=== PATIENT | female | born 1930 | race Caucasian/White ===

== ENCOUNTER → 2018-04-22 | Outpatient (CLI) | payer OTHER, MEDICAID, MEDICARE | LOC: M WHC 09:48 | DX: Z12.31 Encounter for screening mammogram for malignant neoplasm of breast (principal); Z85.3 Personal history of malignant neoplasm of breast | CPT/HCPCS: 77067 ==

== ENCOUNTER → 2019-07-01 | Outpatient (REF) | payer MEDICARE, MEDICAID ==
[2019-07-01 18:13] LABS: APPEARANCE, URINE CLOUDY (CLEAR); BACTERIA, URINE AUTO 3+ (NEGATIVE); BILIRUBIN, URINE AUTO NEGATIVE (NEGATIVE); BLOOD, URINE BLOOD NEGATIVE (NEGATIVE); COLOR, URINE YELLOW (YELLOW); GLUCOSE, URINE (UA) AUTO NEGATIVE (NEGATIVE); KETONE, URINE AUTO NEGATIVE (NEGATIVE); LEUKOCYTE ESTERASE, URINE AUTO 3+ (NEGATIVE); MUCUS, URINE SMALL (NEGATIVE); NITRITE, URINE AUTO POSITIVE (NEGATIVE); PROTEIN, URINE AUTO 3+ mg/dL (NEGATIVE); RBC, URINE AUTO 3 /HPF (0-3); SPECIFIC GRAVITY URINE AUTO 1.014 (1.002-1.035); SQUAMOUS EPITHELIAL CELL UR AU 0 /HPF (0-6); UROBILINOGEN, URINE AUTO 0.2 mg/dL (0.0-2.0); WBC, URINE AUTO 172 /HPF (0-3)
== END ==
LOC: M LAB REF 17:05
PROVIDERS: ATTEND Nurse Practitioner Family
DX: N39.0 Urinary tract infection, site not specified (principal)

== ENCOUNTER 2019-12-19 09:04 | Inpatient (IN) | payer MEDICARE, MEDICAID ==
[2019-12-19] VITALS (17 sets, daily range): BP systolic 104–165; BP diastolic 52–71
[2019-12-19] MEDS: EZETIMIBE 10 MG TAB (ZETIA) PO SCH (09:00)
[2019-12-19] MEDS: oxyBUTYnin *DITROPAN XL* 5 MG TABCR PO SCH (09:00)
[2019-12-19] MEDS ORDERED: SIMV10TA21 PO (09:41)
[2019-12-19] MEDS ORDERED: MAGN400C2 PO (09:41)
[2019-12-19] MEDS ORDERED: OMEP-218 PO (09:41)
[2019-12-19] MEDS ORDERED: LASI20TA3 PO (09:41)
[2019-12-19] MEDS ORDERED: IPRA0.00 NEB (09:41)
[2019-12-19] MEDS ORDERED: DILT120T PO (09:41)
[2019-12-19] MEDS ORDERED: ASPI81TA85 PO (09:41)
[2019-12-19] MEDS ORDERED: METO1TAB7 PO (09:41)
[2019-12-19] MEDS ORDERED: ACET-908 PO (09:41)
[2019-12-19] MEDS ORDERED: JANU25TA PO (09:41)
[2019-12-19] MEDS ORDERED: KP F1200 PO (09:41)
[2019-12-19] MEDS ORDERED: DITR1TAB PO (09:41)
[2019-12-19] MEDS ORDERED: LOPE1CAP5 PO (09:41)
[2019-12-19] MEDS ORDERED: CIDA500T2 PO (09:41)
[2019-12-19] MEDS ORDERED: EZET10TA21 PO (09:41)
--- NOTE | 2019-12-19 09:49 | REP ---
SITTING AP CHEST X-RAY: Single view. HISTORY: Altered mental status. FINDINGS: There is evidence of thyroid enlargement. The thoracic aorta is calcific and tortuous. The heart is mildly enlarged. Pulmonary vasculature is not increased. The lungs are well inflated and clear. Monitoring electrodes are seen. There are generative changes in the shoulders bilaterally. IMPRESSION: Cardiomegaly. Goiter. Otherwise no acute disease. Electronically Signed by Fran Mata MD 12/19/2019 11:09 A
--- NOTE | 2019-12-19 09:49 | REP ---
CT BRAIN WITHOUT CONTRAST: HISTORY: Altered mental status. No comparison study. CT FINDINGS: Digital preliminary dough mixer helper radiograph is unremarkable. The bony calvarium is intact. There is heavy vascular calcification in the distal vertebral and internal carotid arteries bilaterally. The visualized paranasal sinuses are clear. On soft tissue window settings, there is moderate diffuse atrophy. There are small vessel changes in the periventricular white matter. There are lesions in the basal ganglia bilaterally. On the left, there is a 6 mm hyperdense nodule in the basal ganglia, which could be a small petechial hemorrhage. Superior to this there is an old lacunar infarct of similar size in the left basal ganglia. There is also an old lacunar infarct in the head of the caudate nucleus. On the right, there is heterogeneous low density with linear hyperdensity in a lesion in the right basal ganglia laterally. The appearance is suggestive of subacute infarct pattern. There is some edema associated with this. The right basal ganglia lesion is larger. Approximately 2.5 cm. No other evidence of cortical infarction is seen. No other hemorrhage is seen. IMPRESSION: Findings consistent with subacute infarction in the lateral aspect of the basal ganglia on the right and rounded 6 mm petechial hemorrhage in the lateral aspect of the basal ganglia on the left. There are two old lacunar infarcts in the basal ganglia on the left as well. Vascular calcification, diffuse atrophy, and small vessel changes are also noted. Findings discussed by telephone with the referring provider at the time of the study. Electronically Signed by Fran Mata MD 12/19/2019 11:11 A
[2019-12-19] MEDS ORDERED: FUROSEMIDE 20 MG TAB PO ONE (10:00)
[2019-12-19] MEDS ORDERED: METOPROLOL SUCC (TopROL XL) 50MG **XL** TAB PO ONE (10:00)
[2019-12-19] MEDS ORDERED: CARD120C3 PO (10:07)
[2019-12-19 10:13] LABS: BASO # 0.1 10^3/uL (0.0-0.2); BASO % 0.5 % (0.0-1.0); EOS # 0.1 10^3/uL (0.0-0.5); EOS % 1.2 % (0.0-3.0); HEMATOCRIT 39.9 % (36.0-47.0); HEMOGLOBIN 12.9 g/dl (12.0-15.5); LYMPH # 2.2 10^3/uL (1.5-5.0); LYMPH % 20.7 % (24.0-44.0); MEAN CORPUSCULAR HEMOGLOBIN 29.7 pg (27.0-33.0); MEAN CORPUSCULAR HGB CONC 32.3 g/dl (32.0-36.5); MEAN CORPUSCULAR VOLUME 91.9 fl (80.0-96.0); MONO # 0.7 10^3/uL (0.0-0.8); MONO % 6.8 % (0.0-5.0); NEUTROPHILS # 7.5 10^3/uL (1.5-8.5); PLATELET COUNT, AUTOMATED 241 10^3/uL (150-450); RED BLOOD COUNT 4.34 10^6/uL (4.00-5.40); WHITE BLOOD COUNT 10.7 10^3/uL (4.0-10.0)
[2019-12-19 11:00] LABS: ALT/SGPT 14 U/L (12-78); BILIRUBIN,DIRECT 0.1 MG/DL (0.0-0.2); BILIRUBIN,TOTAL 0.5 MG/DL (0.2-1.0); BLOOD UREA NITROGEN 23 MG/DL (7-18); CALCIUM LEVEL 9.6 MG/DL (8.8-10.2); CARBON DIOXIDE LEVEL 25 MEQ/L (21-32); CHLORIDE LEVEL 104 MEQ/L (98-107); CK-MB VALUE MASS < 1.0 NG/ML (<3.6); CPK CREATINE PHOSPHOKINASE 96 U/L (26-192); CREATININE FOR GFR 1.24 MG/DL (0.55-1.30); GLOMERULAR FILTRATION RATE 43.6 (>32); GLUCOSE, FASTING 135 MG/DL (70-100); MB/CK RELATIVE INDEX 1.04 (< OR =4); POTASSIUM SERUM 5.2 MEQ/L (3.5-5.1); SODIUM LEVEL 135 MEQ/L (136-145); TOTAL PROTEIN 7.9 GM/DL (6.4-8.2); TROPONIN I < 0.02 NG/ML (< 0.10)
--- NOTE | 2019-12-19 11:41 | REP ---
MR angiography the brain without contrast: History: Facial droop. Abnormal CT study 12/19/2019. Technique: 3-D [id number] MR angiography of the brain is acquired in the usual fashion and maximal intensity projection images were generated in rotational format about the vertical and horizontal axes. In addition, source axial T1-weighted images are viewed in cine mode. MR angiographic findings: There is a T1 hyperintense lesion in the right basal ganglia and a focal T1 hypointense signal dropout in the left basal ganglia corresponding to the lesion seen on CT. The distal vertebral arteries are patent and co-dominant. Basilar artery is a little tortuous but widely patent. The posterior cerebral and superior cerebellar vessels are normal and symmetric. The distal internal carotid arteries are unremarkable. Anterior and middle cerebral arteries appear intact. There is no visible lua aneurysm or arteriovenous malformation. Impression: Unremarkable MR angiography the brain. Electronically Signed by Fran Mata MD 12/19/2019 11:33 A
--- NOTE | 2019-12-19 11:52 | REP ---
MRI brain without contrast: History: Abnormal CT. History of facial droop. Comparison CT study is from earlier today. Technique: Axial and sagittal imaging planes are utilized for T1 and T2-weighted scans. Sequences include spin-echo, fast spin echo, FLAIR, and diffusion weighted sequences. MRI findings: The lesion seen by CT study in the right basal ganglia laterally is observed. This has a hemosiderin stain surrounding it and a hyperintense T1 and hyperintense T2 internal signal intensity consistent with subacute hemorrhage. It measures 2.3 cm anterior to posterior by 1.0 cm right to left by 2.0 cm cranial to caudal. There is some adjacent edema and subtle mass effect. On the left there is subtle edema around a low T1 low T2 signal intensity focus in the left lateral basal ganglia corresponding to the hyperdense lesion in the left basal ganglia on CT study. This may be acute hemorrhage. There are small vessel changes and diffuse atrophy. No extra-axial fluid collection is seen. There is restricted diffusion in the subacute lesion in the right basal ganglia. Impression: Findings consistent with a 2.3 cm subacute hemorrhagic infarction in the right basal ganglia laterally with some adjacent edema. There is a 6 mm focus of low T1 low T2 signal intensity corresponding to the hyperdensity on CT which is consistent with an acute small hemorrhage in the left basal ganglia. Small vessel changes and diffuse atrophy are seen. Electronically Signed by Fran Mata MD 12/19/2019 03:50 P
[2019-12-19] MEDS ORDERED: hydrALAZINE INJ 20 MG/ML VIAL IV STA (12:07)
[2019-12-19] MEDS ORDERED: [UNRECOGNIZED DRUG - CODE] PO (13:14)
[2019-12-19] MEDS ORDERED: META0.52 PO ×2 (13:14→13:21)
[2019-12-19] MEDS ORDERED: NYST1POW9 TOP (13:14)
[2019-12-19] MEDS ORDERED: BETA0.0543 TOP (13:14)
[2019-12-19] MEDS ORDERED: OMEG12003 PO (13:14)
[2019-12-19] MEDS ORDERED: DEXTROSE 50% 50 ML SYRINGE IV PRN (13:30)
[2019-12-19] MEDS ORDERED: GLUCAGON FOR INJ 1 MG VIAL (J1610) SC PRN (13:30)
[2019-12-19] MEDS ORDERED: GLUCOSE 4 GM CHEW TABLET PO PRN (13:30)
[2019-12-19] MEDS ORDERED: OMEPRAZOLE 20 MG CAP PO PRN (13:45)
[2019-12-19] MEDS ORDERED: NYSTATIN 100,000 UNITS/GM TOPICAL PWD 15 GM TOP PRN (13:45)
[2019-12-19] MEDS ORDERED: ACETAMINOPHEN 325 MG TAB PO PRN (13:45)
[2019-12-19] MEDS ORDERED: PILL CUTTER 1 EACH XX PRN (14:00)
--- NOTE | 2019-12-19 15:01 | REP ---
REASON: Stroke like symptoms. PRIORS: None. Echogenic material is seen along the carotid arterial joyner. Some of this casts an acoustic shadow consistent with calcific deposition. RIGHT LEFT CCA Systolic 67.4 cm/s 87.3 cm/s CCA Diastolic 5.9 cm/s 8.4 cm/s ICA Systolic 71.5 cm/s 92.5 cm/s ICA Diastolic 10.6 cm/s 15.2 cm/s ICA/CCA Ratio 1.06 1.06 Analysis of the spectral tracing shows no evidence of spectral broadening. There is antegrade flow seen in both vertebral arteries. IMPRESSION: According to the NASCET consensus criteria there is less than 50% stenosis of the internal carotid artery bilaterally. This is secondary to both calcified and non-calcified atheromatous plaque formation. Electronically Signed by Iggy Llanos DO 12/19/2019 03:44 P
[2019-12-19] MEDS: niCARdipine IV 40 MG in IV 1 EA IV SCH ×2 (15:04→20:54)
--- NOTE | 2019-12-19 16:22 | REP ---
Left knee series: Four views. History: Pain with movement. Findings: Four views of the left knee demonstrate severe osteoarthritis and advanced chondrocalcinosis. There is medial and lateral joint space narrowing and well established osteophyte formation. Fullness in the region of the suprapatellar bursa suggests a small effusion. There is extensive vascular calcification. There is diffuse osteopenia. 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 Vascular calcification and diffuse osteopenia. Possible joint effusion. No fracture seen. Electronically Signed by Fran Mata MD 12/19/2019 05:03 P
[2019-12-19] MEDS: HumaLOG INSULIN (NovoLOG) PER UNIT SC SCH ×2 (18:08→20:21)
--- NOTE | 2019-12-19 18:18 | HPE ---
DATE OF ADMISSION: 12/19/2019 at 01:00 p.m. CHIEF COMPLAINT: Facial droop. HISTORY OF PRESENT ILLNESS: Ms. Burnham is an 89-year-old woman who has a past medical history notable for hypertension, hyperlipidemia, fny-sumeoue-fchwdvuuv diabetes type 2, breast cancer status post chemotherapy, radiation and lumpectomy, and chronic kidney disease (CKD) stage III. The patient resides at one of the local [facility]. She was noted to have a facial droop today and was subsequently sent to the emergency room (ER) for evaluation. On arrival to the emergency department (ED), the patient was noted to have a blood pressure of 229/93 with a regular rhythm. Subsequent workup indicated that she had bilateral hemorrhagic strokes involving the right and left basal ganglia areas. Discussion was had with the patient's son who given his mother's advanced age did not want any aggressive therapy including neurosurgical intervention. Therefore, the patient was admitted to [facility]. In the ER, her blood pressures remained elevated. She has received her oral medications consisting of diltiazem, Lasix, and metoprolol in addition to IV hydralazine. When I saw her, her blood pressure systolic was 187. The patient is oriented to herself only. She is not oriented to place, person or time. Her medical history was obtained from her son, Manuel, over the phone by me. Her allergies are to MORPHINE. Her home medications are provided from the senior living list and include: - Tylenol 325 by mouth every six hours as needed for pain or fever - baby aspirin at bedtime - betamethasone cream apply twice a day as needed for skin eruption to face - Cardizem 120 mg by mouth daily - Crestor 10 mg by mouth daily - furosemide 10 mg twice a day - glucosamine 1000 mg by mouth daily - DuoNebs as needed for shortness of breath every six hours - loperamide 2 mg twice a day as needed for diarrhea - magnesium oxide 400 mg by mouth daily - metoprolol succinate 50 mg by mouth daily - Nystatin powder 15 grams as needed for itching under breasts and abdominal folds - fish oil 1200 mg by mouth daily - omeprazole 20 mg by mouth daily as needed for heartburn - Ditropan XL 10 mg by mouth daily - Metamucil three capsules by mouth daily - simvastatin 10 mg at bedtime - Januvia 25 mg by mouth daily Her past medical history is notable for diabetes mellitus, type two, non-insulin dependent with complications of chronic kidney disease (CKD), stage III. She has hypertension, hyperlipidemia, history of breast cancer. She has history of renal carcinoma status post partial nephrectomy. She has a history of skin cancer, unspecified. She has history of urinary incontinence. PAST SURGICAL HISTORY: Notable for lumpectomy, hysterectomy, cholecystectomy as well as partial nephrectomy. SOCIAL HISTORY: The patient resides in [place]. She does not use alcohol or illicit drugs. She has never smoked from my conversation with her son, Manuel. Manuel is her durable power of trademark attorney. He indicates to me that his mother's wishes were that she be resuscitated should she be able to live a regular life, but that she does not desire prolonged life sustaining measures should she be in a vegetative state. Therefore, I indicated to Manuel that she will be a full code unless he designates that otherwise. REVIEW OF SYSTEMS: Could not be obtained secondary to the patient's underlying dementia. FAMILY HISTORY: Noncontributory given the patient's advanced age and unable to be obtained given her underlying dementia. PHYSICAL EXAMINATION: The patient's pulse is regular at 63, respirations are 18, blood pressure is 189/74, oxygen saturation is 96% on room air. Temperature is 98.1. GENERAL: The patient is alert and oriented to self only. She is disoriented to time, place and event. She appears to be in no acute distress. She is not exhibiting any facial asymmetry, nor deficits in her speech, nor any hemiparesis. Her head is atraumatic. Her pupils are symmetric and reactive to light. No scleral icterus. Oropharynx is clear. Oral mucosa is moist. Tongue midline. Lungs sounds are appreciated without any audible carotid bruits. Heart is S1, S2. Abdomen is soft, nontender, nondistended with active bowel sounds. Extremities are without any significant cyanosis, clubbing or edema. Muscle strength is 5/5 in the proximal distal muscle groups of the upper and lower extremities. Her knee reflex was 2+, difficult to elicit the bicep, wrist and ankle reflex. RELEVANT DIAGNOSTIC STUDIES: EKG showed normal sinus rhythm with nonspecific T wave, ST changes. Sodium is 135, potassium 4.2, chloride 104, bicarbonate 25, BUN is 22, creatinine is 1.24, TSH is 1.47. White count is 10.7, hemoglobin is 12, hematocrit 29, platelet count is 241,000. RELEVANT IMAGING STUDIES: CT scan of the head showed findings consistent with subacute infarction in the lateral aspect of the basal ganglia on the right and a rounded 6 mm petechial hemorrhage in the lateral aspect of the basal ganglia on the left. There are two old lacunar infarcts in the basal ganglia on the left as well, vascular calcification, diffuse atrophy and small vessel changes are also noted. Chest x-ray showed cardiomegaly, goiter, otherwise no acute disease. MRA of the brain without contrast showed no significant vascular cerebral deficit. MRI of the brain without contrast showed findings consistent with a 2.3 cm subacute hemorrhage infarction in the right basal ganglia laterally with some adjacent edema. There is a 6 mm focus of low T1, low T2 signal intensity corresponding to the hyper density seen on the CT which is consistent with an acute small hemorrhage in the left basal ganglia, small vessel changes and diffuse atrophy are seen. IMPRESSION: 1. Acute hemorrhagic stroke. The patient will be admitted to the intensive care unit (ICU) for adequate blood pressure control. She will be placed on a nicardipine drip. We will aim to keep her systolic blood pressure less than 140. The patient has received her oral medications. However, at this point in time, we will hold off on reintroducing those as we do not want to bottom her pressure until we reassess her in the next 24 hours. The patient will have serial stroke checks. I did with her son code status and she will be a full code, but if her condition deteriorates, no intervention is warranted. The patient's aspirin will be discontinued. She will be placed on sequential compression devices (SCDs) for deep vein thrombosis (DVT) prophylaxis. 2. Hypertensive emergency. The patient will be placed on a nicardipine drip. 3. Chronic kidney disease (CKD), stage III. The patient will be monitored closely with serial basic metabolic panels (BMPs). We will avoid nephrotoxins. 4. Hypertension. Plan per above. 5. Hyperlipidemia. The patient will have a fasting lipid profile checked in the morning. We will continue with her Crestor as well as statin. 6. Diabetes mellitus, type 2, [id number]. The patient will be placed on sliding scale. We will continue with her Januvia also as well as place her on a consistent-carbohydrate diet. 7. Deconditioning. The patient will be seen by physical therapy (PT) and occupational therapy (OT) in regards to her hemorrhagic stroke. I anticipate that she will be able to return to the senior living where she is currently residing in the next 48 hours. 8. Gastrointestinal (GI) prophylaxis. The patient will be placed on a proton pump inhibitor. 9. DVT prophylaxis. The patient will be placed on SCDs and thromboembolic-deterrent stockings (TEDS) only.
--- NOTE | 2019-12-19 19:33 | ECGEPIP ---
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
[2019-12-19] MEDS: SITagliptin 50 MG TAB (JANUVIA) PO SCH (20:23)
[2019-12-19] MEDS ORDERED: PRAVASTATIN 20 MG TAB PO SCH (21:00)
--- NOTE | 2019-12-19 21:12 | ECHO ---
DATE OF PROCEDURE: 12/19/2019 Date of : 1930 Age: 89 Gender: Female Height: 63 inches Weight: 145 pounds Body surface area: 1.69 meters squared Inpatient: ICU, room 3205 REFERRING PHYSICIAN: Dr. Kaden Cervantes INDICATION: CVA - cardiac source of embolic material questionable. MEASUREMENTS: 2D Measurements: RV: 2.8 cm LV: 4.4 cm Septum: 1.3 cm Posterior wall: 1.3 cm Aortic root: 3.0 cm LA: 4.5 cm LVEF: 75% Doppler Measurements: AV: 1.6 meters per second LVOT: 1.0 meters per second LVOT diameter: 1.8 cm MV-E: 67, A: 95, EA ratio: 0.7 Early mitral deceleration time: 296 milliseconds E prime medial: 4.2, A prime medial: 7.4, E prime lateral: 6.2 Average E/E prime ratio: 12.9/pulmonary capillary wedge pressure: 17.9 mmHg. PV: 1.1 meters per second Pulmonary artery acceleration time: 99 milliseconds RVSP: 37 mmHg IVC: 1.3 cm COMMENTS: Normal sinus rhythm without intraventricular conduction disturbance. Occasional frequent isolated unifocal premature ventricular contractions (PVCs). M-mode and two-dimensional echocardiography was performed with pulsed, continuous wave, color flow and tissue Doppler studies. Mild concentric left ventricular hypertrophy with hyperkinetic wall motion. Mild to moderately dilated left atrium with grade 1 LV diastolic dysfunction and at least mildly elevated estimated mean left atrial pressure. Normal right heart chamber sizes and motion with Doppler evidence of mild pulmonary hypertension. Normal inferior vena cava (IVC) size and collapse against an elevated central venous pressure. Mild aortic valvular sclerosis without functional abnormality. Normal aortic diameters. Mild mitral annular calcification with normal leaflet thickness and excursion and no posterior systolic buckling or prolapse but mild insufficiency. Normal appearing tricuspid valve with mild-moderate insufficiency. No apparent intracardiac mass or pedunculated vegetation. No pericardial effusion. If a cardiac source of embolic material is seriously suspect, would recommend complete blood count, sedimentation rate and two sets of blood cultures by 12 hours.
[2019-12-20] VITALS (23 sets, daily range): BP systolic 104–156; BP diastolic 51–66
[2019-12-20 03:14] LABS: HEMATOCRIT 39.3 % (36.0-47.0); HEMOGLOBIN 12.8 g/dl (12.0-15.5); MEAN CORPUSCULAR HEMOGLOBIN 29.6 pg (27.0-33.0); MEAN CORPUSCULAR HGB CONC 32.6 g/dl (32.0-36.5); MEAN CORPUSCULAR VOLUME 90.8 fl (80.0-96.0); PLATELET COUNT, AUTOMATED 261 10^3/uL (150-450); RED BLOOD COUNT 4.33 10^6/uL (4.00-5.40); WHITE BLOOD COUNT 11.7 10^3/uL (4.0-10.0)
[2019-12-20 03:40] LABS: CALCIUM LEVEL 9.3 MG/DL (8.8-10.2); CHOLESTEROL RISK RATIO 3.277 (<5); CREATININE FOR GFR 1.86 MG/DL (0.55-1.30); GLOMERULAR FILTRATION RATE 27.3 (>32); POTASSIUM SERUM 4.6 MEQ/L (3.5-5.1)
[2019-12-20] MEDS: niCARdipine IV 40 MG in IV 1 EA IV SCH (05:19)
[2019-12-20] MEDS: HumaLOG INSULIN (NovoLOG) PER UNIT SC SCH ×4 (08:12→21:00)
[2019-12-20] MEDS: NS 1,000 ML IV SCH ×2 (08:12→21:18)
[2019-12-20] MEDS: METOPROLOL SUCC (TopROL XL) 50MG **XL** TAB PO SCH (09:00)
[2019-12-20] MEDS: EZETIMIBE 10 MG TAB (ZETIA) PO SCH (10:03)
[2019-12-20] MEDS: oxyBUTYnin *DITROPAN XL* 5 MG TABCR PO SCH (10:03)
--- NOTE | 2019-12-20 11:14 | IPNPDOC ---
Subjective Date Seen The patient was seen on 12/20/19. Subjective Chief Complaint/HPI BP has remained controlled on cardene gtt. Clinically she is stable from a neurological perspective w/o any significant neurologic deficits. Her son is at the bedside and is updated by me. Objective Physical Examination General Exam: Positive: Alert, Cooperative, No Acute Distress Eye Exam: Positive: Conjunctiva & lids normal, EOMI; Negative: Sclera icteric ENT Exam: Positive: Atraumatic Neck Exam: Positive: Supple Chest Exam: Positive: Clear to auscultation Heart Exam: Positive: Rate Normal Abdomen Exam: Positive: Normal bowel sounds Extremity Exam: Positive: Normal pulses; Negative: Clubbing, Cyanosis, Edema Neuro Exam: Positive: Normal Speech, Strength at 5/5 X4 ext, Cranial Nerves 3- 12 NL Psych Exam: Positive: Mental status NL, Mood NL Assessment /Plan Assessment # Acute hemorrhagic stroke involving bilateral basal ganglia # Hypertensive emergency - discontinue cardene gtt - resume oral cardizem and metoprolol with parameters - IV hydralazine prn SBP > 160 mm Hg - may transfer to PCU - No need for repeat CT head, neurologic exam has not changed since admission, and family not interested in surgical intervention - neurochecks q 4 - likely back to SNF on sunday # ALBA with Chronic kidney disease (CKD), stage III - start IVFs and repeat in am # Hyperlipidemia - LDL at goal - continue home statin # 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 # GI prophylaxis - conitnue ppi # DVT prophylaxis - holding asa - SCDs Plan/VTE VTE Prophylaxis Ordered?: Yes VTE Exclusion Mechanical Proph: N/A:VTE Prophy Ordered VTE Exclusion Pharmacological: Hemorrhage (ICH) VS, I&O, 24H, Fishbone Vital Signs/I&O Vital Signs Date Time Temp Pulse Resp B/P (MAP) Pulse Ox O2 Delivery O2 Flow Rate FiO2 12/20/19 10:03 52 18 137/60 (85) 96 Room Air 12/20/19 08:00 98.5 I&O- Last 24 Hours up to 6 AM 12/20/19 06:00 Intake Total 588.1 ml Output Total 400 ml Balance 188.1 ml Laboratory Data 24H LABS Laboratory Tests 2 12/19/19 17:23: Bedside Glucose (Misc Panel) 141H 12/19/19 20:16: Bedside Glucose (Misc Panel) 145H 12/20/19 03:08: Nucleated Red Blood Cells % (auto) 0.0, Anion Gap 8, Glomerular Filtration Rate 27.3L, Calcium Level 9.3, Triglycerides Level 160H, Total Cholesterol 118, LDL Cholesterol 50, Non-HDL Cholesterol (LDL + VLDL) 82, Total HDL Cholesterol 36L, Cholesterol/HDL Ratio 3.277 CBC/BMP Laboratory Tests 12/20/19 03:08 MADDY BRANCH MD Dec 20, 2019 11:14
[2019-12-20] MEDS: SIMVASTATIN 10 MG TAB PO SCH (21:53)
[2019-12-20] MEDS: SITagliptin 50 MG TAB (JANUVIA) PO SCH (21:53)
[2019-12-21] VITALS (28 sets, daily range): BP systolic 112–189; BP diastolic 60–138
[2019-12-21] MEDS: hydrALAZINE INJ 20 MG/ML VIAL IV PRN (00:02)
[2019-12-21] MEDS ORDERED: LABETALOL HCL 100 MG/20 ML VIAL IV STA (01:23)
[2019-12-21] MEDS ORDERED: ASPIRIN 325 MG TAB PO ONE (02:00)
[2019-12-21] MEDS ORDERED: NITROGLYCERIN 0.4 MG SUBL TABLET SL PRN (02:00)
[2019-12-21] MEDS ORDERED: niCARdipine IV 40 MG in IV 1 EA IV SCH (02:45)
[2019-12-21 02:59] LABS: CPK CREATINE PHOSPHOKINASE 49 U/L (26-192); TROPONIN I < 0.02 NG/ML (< 0.10)
[2019-12-21] MEDS ORDERED: METOPROLOL 5 MG/5 ML VIAL IV STA (05:00)
[2019-12-21 05:48] LABS: CALCIUM LEVEL 8.7 MG/DL (8.8-10.2); CREATININE FOR GFR 1.55 MG/DL (0.55-1.30); GLOMERULAR FILTRATION RATE 33.7 (>32); POTASSIUM SERUM 4.1 MEQ/L (3.5-5.1)
[2019-12-21 07:30] LABS: MAGNESIUM LEVEL 1.8 MG/DL (1.8-2.4)
[2019-12-21] MEDS: HumaLOG INSULIN (NovoLOG) PER UNIT SC SCH ×4 (08:06→20:09)
[2019-12-21] MEDS: ASPIRIN 81 MG ENTERIC TAB PO SCH (08:06)
[2019-12-21] MEDS: METOPROLOL SUCC (TopROL XL) 50MG **XL** TAB PO SCH (08:06)
[2019-12-21] MEDS: EZETIMIBE 10 MG TAB (ZETIA) PO SCH (08:06)
[2019-12-21] MEDS: oxyBUTYnin *DITROPAN XL* 5 MG TABCR PO SCH (08:07)
[2019-12-21] MEDS ORDERED: METOPROLOL TART 25 MG TABLET PO ONE (10:00)
--- NOTE | 2019-12-21 11:53 | IPNPDOC ---
Subjective Date Seen The patient was seen on 12/21/19. Subjective Chief Complaint/HPI Became HTN overnight, and cardene gtt was restarted. Currently off, and SBP controlled. Patient doing well, sitting in chair eating breakfast. No acute neurologic changes reported. Tele: PACs, NSVT. Electrolytes are normal range. Objective Physical Examination General Exam: Positive: Alert, No Acute Distress Eye Exam: Positive: PERRLA, Conjunctiva & lids normal, EOMI; Negative: Sclera icteric ENT Exam: Positive: Atraumatic, Mucous membr. moist/pink Neck Exam: Positive: Supple Chest Exam: Positive: Clear to auscultation Heart Exam: Positive: Rate Normal, Normal S1, Normal S2 Abdomen Exam: Positive: Normal bowel sounds Extremity Exam: Positive: Normal pulses; Negative: Clubbing, Cyanosis, Edema Neuro Exam: Positive: Normal Speech, Strength at 5/5 X4 ext, Cranial Nerves 3- 12 NL Psych Exam: Positive: Mental status NL, Mood NL Assessment /Plan Assessment # Acute hemorrhagic stroke involving bilateral basal ganglia # Hypertensive emergency - stop cardene gtt - likely developed rebound HTN from being off her meds due to hold parameters - continue oral cardizem and metoprolol with parameters - give one time dose of metoprolol tartate 25 mg - IV hydralazine prn SBP > 160 mm Hg - No need for repeat CT head, neurologic exam has not changed since admission, and family not interested in surgical intervention - neurochecks q 4 - likely back to SNF on sunday if SBP controlled # ALBA with Chronic kidney disease (CKD), stage III - IVFs stopped due to HTN - creat improved - BMP in am # Hyperlipidemia - LDL at goal - continue home statin # 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 # GI prophylaxis - conitnue ppi # DVT prophylaxis - holding asa - SCDs Plan/VTE VTE Prophylaxis Ordered?: Yes VTE Exclusion Mechanical Proph: N/A:VTE Prophy Ordered VTE Exclusion Pharmacological: Hemorrhage (ICH) VS, I&O, 24H, Fishbone Vital Signs/I&O Vital Signs Date Time Temp Pulse Resp B/P (MAP) Pulse Ox O2 Delivery O2 Flow Rate FiO2 12/21/19 09:59 70 151/64 12/21/19 08:00 98.0 12/21/19 07:32 20 97 Room Air I&O- Last 24 Hours up to 6 AM 12/21/19 05:59 Intake Total 2870 ml Output Total 725 ml Balance 2145 ml Laboratory Data 24H LABS Laboratory Tests 2 12/20/19 16:45: Magnesium Level 2.1 12/20/19 17:04: Bedside Glucose (Misc Panel) 148H 12/20/19 21:44: Bedside Glucose (Misc Panel) 147H 12/21/19 02:13: Total Creatine Kinase 49, Troponin I < 0.02 12/21/19 04:49: Anion Gap 8, Glomerular Filtration Rate 33.7, Calcium Level 8.7L, Magnesium Level 1.8 12/21/19 07:45: Bedside Glucose (Misc Panel) 160H CBC/BMP Laboratory Tests 12/21/19 04:49 MADDY BRANCH MD Dec 21, 2019 11:53
--- NOTE | 2019-12-21 12:30 | ECGEPIP ---
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
--- NOTE | 2019-12-21 12:38 | ECGEPIP ---
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
[2019-12-21] MEDS: SITagliptin 50 MG TAB (JANUVIA) PO SCH (20:08)
[2019-12-21] MEDS: SIMVASTATIN 10 MG TAB PO SCH (20:09)
[2019-12-22] VITALS (12 sets, daily range): BP systolic 136–190; BP diastolic 48–80
[2019-12-22] MEDS: hydrALAZINE INJ 20 MG/ML VIAL IV PRN ×2 (02:33→22:27)
[2019-12-22 05:46] LABS: CALCIUM LEVEL 9.5 MG/DL (8.8-10.2); CREATININE FOR GFR 1.2 MG/DL (0.55-1.30); GLOMERULAR FILTRATION RATE 45.2 (>32)
[2019-12-22] MEDS: HumaLOG INSULIN (NovoLOG) PER UNIT SC SCH ×4 (09:06→20:58)
[2019-12-22] MEDS: ASPIRIN 81 MG ENTERIC TAB PO SCH (09:07)
[2019-12-22] MEDS: EZETIMIBE 10 MG TAB (ZETIA) PO SCH (09:07)
[2019-12-22] MEDS: oxyBUTYnin *DITROPAN XL* 5 MG TABCR PO SCH (09:07)
[2019-12-22] MEDS: METOPROLOL SUCC (TopROL XL) 50MG **XL** TAB PO SCH (09:07)
--- NOTE | 2019-12-22 11:00 | IPNPDOC ---
Subjective Date Seen The patient was seen on 12/22/19. Subjective Chief Complaint/HPI Mackenzie's SBP has remained controlled since resuming her medications. She is neurologically intact. She has had asymptomatic NSVT on tele. Objective Physical Examination General Exam: Positive: Alert, No Acute Distress Eye Exam: Positive: PERRLA, Conjunctiva & lids normal, EOMI; Negative: Sclera icteric ENT Exam: Positive: Atraumatic, Mucous membr. 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 # Hypertensive emergency - home with home health today - stop aspirin - f/u with PCP - continue oral cardizem and metoprolol with parameters - No need for repeat CT head, neurologic exam has not changed since admission, and family not interested in surgical intervention # Asymptomatic NSVT - electrolytes wnl and Echo shows no significant structural disease # ALBA with Chronic kidney disease (CKD), stage III - resolved - creat back to normal # Hyperlipidemia - LDL at goal - continue home statin # 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 # GI prophylaxis - conitnue ppi # DVT prophylaxis - holding asa - SCDs Plan/VTE VTE Prophylaxis Ordered?: Yes VTE Exclusion Mechanical Proph: N/A:VTE Prophy Ordered VTE Exclusion Pharmacological: Hemorrhage (ICH) VS, I&O, 24H, Fishbone Vital Signs/I&O Vital Signs Date Time Temp Pulse Resp B/P (MAP) Pulse Ox O2 Delivery O2 Flow Rate FiO2 12/22/19 09:45 160/70 (100) 12/22/19 09:07 66 12/22/19 08:00 98.0 18 96 Room Air I&O- Last 24 Hours up to 6 AM 12/22/19 06:00 Intake Total 1140 ml Output Total 1800 ml Balance -660 ml Laboratory Data 24H LABS Laboratory Tests 2 12/21/19 11:49: Bedside Glucose (Misc Panel) 175H 12/21/19 16:53: Bedside Glucose (Misc Panel) 127H 12/21/19 20:09: Bedside Glucose (Misc Panel) 161H 12/22/19 04:54: Anion Gap 9, Glomerular Filtration Rate 45.2, Calcium Level 9.5 CBC/BMP Laboratory Tests 12/22/19 04:54 MADDY BRANCH MD Dec 22, 2019 11:00
[2019-12-22] MEDS ORDERED: METOPROLOL SUCC (TopROL XL) 50MG **XL** TAB PO ONE (11:45)
[2019-12-22] MEDS: **hydrALAZINE** 10 MG TAB PO SCH ×2 (14:25→21:05)
[2019-12-22] MEDS: SIMVASTATIN 10 MG TAB PO SCH (21:05)
[2019-12-22] MEDS: SITagliptin 50 MG TAB (JANUVIA) PO SCH (21:05)
[2019-12-23] VITALS (8 sets, daily range): BP systolic 138–188; BP diastolic 42–78
[2019-12-23] MEDS: hydrALAZINE INJ 20 MG/ML VIAL IV PRN ×3 (04:06→21:54)
[2019-12-23] MEDS: **hydrALAZINE** 10 MG TAB PO SCH ×3 (05:02→21:03)
[2019-12-23 05:40] LABS: HEMATOCRIT 34.5 % (36.0-47.0); HEMOGLOBIN 11.3 g/dl (12.0-15.5); MEAN CORPUSCULAR HEMOGLOBIN 29.7 pg (27.0-33.0); MEAN CORPUSCULAR HGB CONC 32.8 g/dl (32.0-36.5); MEAN CORPUSCULAR VOLUME 90.6 fl (80.0-96.0); PLATELET COUNT, AUTOMATED 259 10^3/uL (150-450); RED BLOOD COUNT 3.81 10^6/uL (4.00-5.40); WHITE BLOOD COUNT 9.1 10^3/uL (4.0-10.0)
[2019-12-23 06:04] LABS: CALCIUM LEVEL 9.4 MG/DL (8.8-10.2); CREATININE FOR GFR 1.2 MG/DL (0.55-1.30); GLOMERULAR FILTRATION RATE 45.2 (>32); POTASSIUM SERUM 4.2 MEQ/L (3.5-5.1)
[2019-12-23] MEDS: HumaLOG INSULIN (NovoLOG) PER UNIT SC SCH ×4 (07:30→21:00)
[2019-12-23] MEDS ORDERED: METOPROLOL SUCC *XL* 25MG TAB (TopROL *XL*) PO SCH (09:00)
--- NOTE | 2019-12-23 10:31 | IPNPDOC ---
Text Note Date of Service The patient was seen on 12/23/19. NOTE S: Patient seen and examined at bedside. No acute overnight events reported. No new medical complaints this morning. 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 - neurology c/s pending # Hypertensive emergency - continue oral cardizem and metoprolol with parameters - continue telemetry - No repeat CT head, family not interested in surgical intervention, no reported changes in neurological assessment # Asymptomatic NSVT - keep K>4, mag>2 - Echo shows no significant structural disease #gait instability - continue PT - will likely need placement/assisted living # ALBA/CKD III - resolved # Hyperlipidemia - LDL at goal - continue home statin # 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
[2019-12-23] MEDS: EZETIMIBE 10 MG TAB (ZETIA) PO SCH (10:57)
[2019-12-23] MEDS: oxyBUTYnin *DITROPAN XL* 5 MG TABCR PO SCH (10:57)
[2019-12-23] MEDS: ASPIRIN 81 MG ENTERIC TAB PO SCH (10:58)
[2019-12-23] MEDS: METOPROLOL SUCC (TopROL XL) 50MG **XL** TAB PO SCH (10:58)
[2019-12-23 11:46] LABS: ERYTHROCYTE SEDIMENTATION RATE 82 mm/hr (0-30)
--- NOTE | 2019-12-23 20:24 | CR ---
DATE OF CONSULTATION: 12/23/2019 REFERRING PHYSICIAN: Dr. David Cleaning REASON FOR CONSULTATION: Left-sided facial droop. HISTORY OF PRESENT ILLNESS: Mackenzie Burnham is an 89-year-old woman with history of hypertension, dyslipidemia, type 2 diabetes, breast cancer, status post radiation, chemotherapy, and surgery, chronic kidney disease, stage III, who lives at [facility]. She was found to have left-sided facial droop and was sent to the emergency department. Her blood pressure was noted to be 229/93, and further testing revealed that she had bilateral basal ganglia hemorrhages. Family did not want any surgical intervention when patient was admitted at [facility]. Her blood pressure is better controlled with hydralazine, diltiazem, metoprolol. The patient is oriented to self only. She denies any headache, neck or back pain. She denies dysphagia, dysarthria, diplopia, or urinary incontinence. DIAGNOSTIC STUDIES: CT scan of head, MRI scan of brain were reviewed and showed right basal ganglia medium-sized cerebral hemorrhage and small petechial hemorrhages in bilateral basal ganglia and thalamic region with amyloid angiopathy on gradient-echo sequence of MRI scan of brain. PAST MEDICAL HISTORY: As per history of present illness (HPI). ALLERGIES: MORPHINE. CURRENT MEDICATIONS: - Cardizem extended-release 120 mg by mouth daily - metoprolol extended release 50 mg by mouth daily - hydralazine 10 mg by mouth three times a day - simvastatin - insulin - aspirin - Ditropan - Zetia - omeprazole 20 mg by mouth daily SOCIAL HISTORY: The patient is at the detention in [place]. She denies smoking, alcohol, or illicit drugs. FAMILY HISTORY: Noncontributory. REVIEW OF SYSTEMS: All systems were reviewed with the patient and were found to be noncontributory except as mentioned in the history of present illness. PHYSICAL EXAMINATION: Blood pressure 176/66, pulse 66, temperature 97.8, pulse 18. HEART: Regular rate and rhythm. LUNGS: Clear to auscultation. ABDOMEN: Soft, nontender, nondistended. No pedal edema. No musculoskeletal abnormalities. No rash. No signs of meningeal irritation. The patient is awake, alert, oriented to self. She is unable to tell me day, date, month, year, name of place, president. She knows city and state. Normal speech, comprehension, and repetition. Extraocular muscles are intact. No facial weakness. Tongue and uvula are midline. Visual ortiz are full to confrontation. No nystagmus. She is able to move all four extremities equally well. Normal sensation bilaterally. Gait could not be tested. Normal [id number] and cerebellar testing. ASSESSMENT: 1. Bilateral basal ganglia, right greater than left, cerebral hemorrhage. 2. Suspected amyloid angiopathy 3. Hypertensive emergency. PLAN: 1. Keep systolic blood pressure below 140 and diastolic blood pressure below 80. 2. Discontinue aspirin, as it will increase future risk of cerebral hemorrhages with amyloid angiopathy. 3. Physical and occupational therapy. 4. Continue hydralazine, metoprolol, and Cardizem and adjust dose but keep blood pressure below 140-80.
[2019-12-23] MEDS: SIMVASTATIN 10 MG TAB PO SCH (21:03)
[2019-12-23] MEDS: SITagliptin 50 MG TAB (JANUVIA) PO SCH (21:03)
[2019-12-24] VITALS (9 sets, daily range): BP systolic 133–192; BP diastolic 59–86
[2019-12-24] MEDS: hydrALAZINE INJ 20 MG/ML VIAL IV PRN ×2 (01:38→04:38)
[2019-12-24 04:24] LABS: HEMOGLOBIN 11.7 g/dl (12.0-15.5); MEAN CORPUSCULAR HEMOGLOBIN 30.5 pg (27.0-33.0); MEAN CORPUSCULAR HGB CONC 33.4 g/dl (32.0-36.5); MEAN CORPUSCULAR VOLUME 91.4 fl (80.0-96.0); PLATELET COUNT, AUTOMATED 282 10^3/uL (150-450); RED BLOOD COUNT 3.83 10^6/uL (4.00-5.40); WHITE BLOOD COUNT 8.7 10^3/uL (4.0-10.0)
[2019-12-24 04:39] LABS: CALCIUM LEVEL 9.7 MG/DL (8.8-10.2); CREATININE FOR GFR 1.26 MG/DL (0.55-1.30); GLOMERULAR FILTRATION RATE 42.8 (>32); POTASSIUM SERUM 3.8 MEQ/L (3.5-5.1)
[2019-12-24] MEDS: **hydrALAZINE** 10 MG TAB PO SCH ×3 (05:33→21:05)
[2019-12-24] MEDS ORDERED: **hydrALAZINE** 10 MG TAB PO ONE (07:30)
[2019-12-24] MEDS: HumaLOG INSULIN (NovoLOG) PER UNIT SC SCH ×4 (07:55→20:08)
[2019-12-24] MEDS: oxyBUTYnin *DITROPAN XL* 5 MG TABCR PO SCH (09:17)
[2019-12-24] MEDS: EZETIMIBE 10 MG TAB (ZETIA) PO SCH (09:18)
[2019-12-24] MEDS: METOPROLOL SUCC (TopROL XL) 50MG **XL** TAB PO SCH (09:18)
--- NOTE | 2019-12-24 10:10 | IPNPDOC ---
Text Note Date of Service The patient was seen on 12/24/19. NOTE S: Patient seen and examined at bedside. No acute overnight events reported. No new medical complaints this morning. 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 - neurology c/s appreciated - d/c aspirin, blood pressure control <140/80 # Hypertensive emergency - continue oral cardizem and metoprolol with parameters - continue telemetry - hydralazine IV prn, increased PO hydralazine # Asymptomatic NSVT - keep K>4, mag>2 - Echo shows no significant structural disease #gait instability - continue PT - will likely need placement/assisted living # ALBA/CKD III - resolved # Hyperlipidemia - LDL at goal - continue home statin # 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 # GI prophylaxis - conitnue ppi # DVT prophylaxis - SCDs VS,Fishbone, I+O VS, Fishbone, I+O Laboratory Tests 12/24/19 03:46 Vital Signs Date Time Temp Pulse Resp B/P (MAP) Pulse Ox O2 Delivery O2 Flow Rate FiO2 12/24/19 09:18 69 190/80 12/24/19 07:53 96.9 18 96 Room Air I&O- Last 24 Hours up to 6 AM 12/24/19 06:00 Intake Total 580 ml Output Total 800 ml Balance -220 ml MARGARITA MENA MD Dec 24, 2019 10:10
[2019-12-24] MEDS ORDERED: SLF 3 ML SYR IV PRN (10:45)
[2019-12-24] MEDS ORDERED: POTASSIUM CHLORIDE 10 MEQ SR TABLET PO ONE (11:00)
[2019-12-24] MEDS ORDERED: hydrALAZINE INJ 20 MG/ML VIAL IV PRN (11:30)
[2019-12-24] MEDS: SLF 3 ML SYR IV SCH ×2 (14:15→21:05)
[2019-12-24 17:03] LABS: POTASSIUM SERUM 4.3 MEQ/L (3.5-5.1)
[2019-12-24] MEDS: SITagliptin 50 MG TAB (JANUVIA) PO SCH (21:04)
[2019-12-24] MEDS: SIMVASTATIN 10 MG TAB PO SCH (21:05)
[2019-12-25] VITALS: BP 182/74
[2019-12-25 04:00] VITALS: BP 160/82
[2019-12-25] MEDS: **hydrALAZINE** 10 MG TAB PO SCH (05:29)
[2019-12-25] MEDS: SLF 3 ML SYR IV SCH (05:29)
[2019-12-25 06:14] LABS: HEMATOCRIT 32.7 % (36.0-47.0); HEMOGLOBIN 10.6 g/dl (12.0-15.5); MEAN CORPUSCULAR HEMOGLOBIN 29.9 pg (27.0-33.0); MEAN CORPUSCULAR HGB CONC 32.4 g/dl (32.0-36.5); MEAN CORPUSCULAR VOLUME 92.1 fl (80.0-96.0); PLATELET COUNT, AUTOMATED 257 10^3/uL (150-450); RED BLOOD COUNT 3.55 10^6/uL (4.00-5.40); WHITE BLOOD COUNT 8.4 10^3/uL (4.0-10.0)
[2019-12-25 06:35] LABS: CALCIUM LEVEL 9.4 MG/DL (8.8-10.2); CREATININE FOR GFR 1.31 MG/DL (0.55-1.30); GLOMERULAR FILTRATION RATE 40.9 (>32); POTASSIUM SERUM 4.1 MEQ/L (3.5-5.1)
[2019-12-25 08:00] VITALS: BP 164/95
[2019-12-25] MEDS: HumaLOG INSULIN (NovoLOG) PER UNIT SC SCH ×2 (08:04→11:55)
[2019-12-25] MEDS: oxyBUTYnin *DITROPAN XL* 5 MG TABCR PO SCH (08:04)
[2019-12-25 08:05] VITALS: BP 160/82
[2019-12-25] MEDS: METOPROLOL SUCC (TopROL XL) 50MG **XL** TAB PO SCH (08:05)
[2019-12-25] MEDS: EZETIMIBE 10 MG TAB (ZETIA) PO SCH (08:05)
[2019-12-25] MEDS ORDERED: HYDR-3910 PO (09:55)
--- NOTE | 2019-12-25 11:28 | DS.PDOC ---
Discharge Summary General Date of Admission Dec 19, 2019 at 13:15 Date of Discharge 12/25/19 Specialist/Consultants Involve: JUAN BRIGHT MD Discharge Summary PROCEDURES PERFORMED DURING STAY: [None]. ADMITTING DIAGNOSES: 1. hypertensive urgency 2. 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 HISTORY OF PRESENT ILLNESS: 89-year-old woman with PMHx notable for hypertension, hyperlipidemia, bug-gsecvve-xwmawerwv diabetes type 2, breast cancer status post chemotherapy, radiation and lumpectomy, and chronic kidney disease (CKD) stage III. The patient resides at one of the local [facility]. She was noted to have a facial droop and was subsequently sent to the emergency room (ER) for evaluation. On arrival to the emergency department (ED), the patient was noted to have a blood pressure of 229/93 with a regular rhythm. Subsequent workup indicated that she had bilateral hemorrhagic strokes involving the right and left basal ganglia areas. Discussion was had with the patient's son who given his mother's advanced age did not want any aggressive therapy including neurosurgical intervention. Therefore, the patient was admitted to [facility]. In the ER, her blood pressures remained elevated. She has received her oral medications consisting of diltiazem, Lasix, and metoprolol in addition to IV hydralazine. HOSPITAL COURSE: Patient admitted for further evaluation and treatment. Seen in consultation by neurology. Required parenteral anti-hypertensive therapy to maintain adequate blood pressure control, which was eventually transitioned to oral therapy. Seen by PT, and cleared for discharge to assisted living facility with outpatient follow up. She did have some episodes of NSVT, asymptomatic, electrolytes within normal limits, K>4, mag>2. DISCHARGE MEDICATIONS: Please see below. ALLERGIES: Please see below. PHYSICAL EXAMINATION ON DISCHARGE: VITAL SIGNS: Please see below. General: NAD, sitting comfortably in chair eating breakfast HEENT: NC/AT Lungs: CTA B/L Heart: +S1S2, RRR Abd: soft, NT, +BS Ext: no edema LABORATORY DATA: Please see below. DIET: 2 gram sodium, carb consistent DISPOSITION: discharge to assisted living - [facility] DISCHARGE INSTRUCTIONS: 1. follow up with pcp in 3-5 days 2. monitor blood pressure, keep sbp <140 3. follow up neurology as scheduled DISCHARGE CONDITION: [Stable]. TIME SPENT ON DISCHARGE: 35 minutes. Vital Signs/I&Os Vital Signs Date Time Temp Pulse Resp B/P (MAP) Pulse Ox O2 Delivery O2 Flow Rate FiO2 12/25/19 08:05 160/82 12/25/19 08:00 97.4 63 18 97 Room Air I&O- Last 24 Hours up to 6 AM 12/25/19 06:00 Intake Total 600 ml Output Total 900 ml Balance -300 ml Laboratory Data Labs 24H Laboratory Tests 2 12/24/19 11:48: Bedside Glucose (Misc Panel) 198H 12/24/19 15:24: Magnesium Level 2.0 12/24/19 17:14: Bedside Glucose (Misc Panel) 146H 12/24/19 20:02: Bedside Glucose (Misc Panel) 174H 12/25/19 05:27: Nucleated Red Blood Cells % (auto) 0.0, Anion Gap 6L, Glomerular Filtration Rate 40.9, Calcium Level 9.4 CBC/BMP Laboratory Tests 12/24/19 15:24 12/25/19 05:27 FSBS Laboratory Tests Test 12/24/19 11:48 12/24/19 17:14 12/24/19 20:02 Range/Units Bedside Glucose (Misc Panel) 198 146 174 83-110 MG/DL Microbiology Microbiology 12/24/19 Blood Culture, Received Pending 12/24/19 Blood Culture, Received Pending Discharge Medications Scheduled Diltiazem Hcl (Cardizem Cd) 120 Mg Cap.er.24h, 120 MG PO DAILY, (Reported) Ezetimibe (Ezetimibe) 10 Mg Tablet, 10 MG PO DAILY, (Reported) Furosemide (Lasix) 20 Mg Tablet, 10 MG PO BID, (Reported) Glucosamine Sulfate (Synovacin) 500 Mg Capsule, 1,000 MG PO DAILY, (Reported) Hydralazine HCl (Hydralazine HCl) 25 Mg Tablet, 25 MG PO TID Magnesium Oxide (Magnesium) 400 Mg Capsule, 400 MG PO DAILY, (Reported) Metoprolol Succinate (Metoprolol Succinate) 50 Mg Tab.er.24h, 50 MG PO DAILY, (Reported) [place]-3/Dha/Epa/Fish Oil (Fish Oil 1,200 mg Softgel) 1 Each Capsule.dr, 1,200 MG PO DAILY, (Reported) Oxybutynin Chloride (Ditropan Xl) 10 Mg Tab.er.24, 10 MG PO DAILY, (Reported) Simvastatin (Simvastatin) 10 Mg Tablet, 10 MG PO QHS, (Reported) Sitagliptin Phosphate (Januvia) 25 Mg Tablet, 25 MG PO DAILY, (Reported) Scheduled PRN Acetaminophen (Acetaminophen) 325 Mg Tablet, 325 MG PO QID PRN for PAIN, (Reported) Betamethasone Dipropionate (Betamethasone Dipropionate) 0.05% Cream..g., 1 APLCT TOP BID PRN for SKIN ERUPTION, (Reported) TO FACE Ipratropium/Albuterol Sulfate (Iprat-Albut 0.5-3(2.5) mg/3 ml) 3 Ml Ampul.neb, 1 VIAL NEB QID PRN for SOB/WHEEZING, (Reported) Loperamide HCl (Loperamide) 2 Mg Capsule, 2 MG PO BID PRN for DIARRHEA, (Reported) Nystatin (Nystatin Powder) 15 Gm Powder, 1 APLCT TOP BID PRN for RASH/ITCHING, (Reported) UNDER BREASTS AND ABDOMINAL FOLDS Omeprazole (Omeprazole) 20 Mg Capsule.dr, 20 MG PO DAILY PRN for HEARTBURN, (Reported) Psyllium Husk (Metamucil) 0.4 Gm Capsule, 3 CAP PO DAILY PRN for BOWEL CARE, (Reported) Allergies Coded Allergies: morphine (Verified Allergy, Unknown, 12/19/19) MARGARITA MENA MD Dec 25, 2019 11:28
== END 2019-12-25 12:27 | DRG 65 ==
LOC: M ED 09:04 → M ED INP 13:15 → ENRESERVDT 13:39 → ENRESERVTM 13:39 → M ED INP 13:43 → M ICU 16:18 → M MSPAV 12-20 20:00 → M ICU 12-20 21:04 → M PCU 12-22 02:15
PROVIDERS: ADMIT Internal Medicine; ATTEND Internal Medicine
DX: I61.8 Other nontraumatic intracerebral hemorrhage (principal); I16.1 Hypertensive emergency; N17.9 Acute kidney failure, unspecified; I47.2 Ventricular tachycardia; E85.4 Organ-limited amyloidosis; I12.9 Hypertensive chronic kidney disease with stage 1 through stage 4 chronic kidney disease, or unspecified chronic kidney disease; E78.5 Hyperlipidemia, unspecified; E11.22 Type 2 diabetes mellitus with diabetic chronic kidney disease; I68.0 Cerebral amyloid angiopathy; Z66 Do not resuscitate; R32 Unspecified urinary incontinence; Z85.3 Personal history of malignant neoplasm of breast; Z92.21 Personal history of antineoplastic chemotherapy; Z92.3 Personal history of irradiation; N18.3 Chronic kidney disease, stage 3 (moderate); Z79.82 Long term (current) use of aspirin; Z79.899 Other long term (current) drug therapy; Z79.84 Long term (current) use of oral hypoglycemic drugs; Z85.828 Personal history of other malignant neoplasm of skin; Z90.5 Acquired absence of kidney; Z85.528 Personal history of other malignant neoplasm of kidney